=== PATIENT | female | born 1990 | race Hispanic/Latino ===

== ENCOUNTER 2020-11-10 23:50 | Emergency (ER) | payer SELFPAY ==
[2020-11-11 00:33] LABS: #Basophils 0.1 thou/uL (0.0-0.2); #Eosinphils 0.2 thou/uL (0.0-0.7); #Monocytes 0.6 thou/uL (0.11-0.59); #Neutrophils 6.8 thou/uL (1.40-6.50); %Basophils 1.2 % (0.0-1.0); %Eosinophils 1.9 % (0.0-10.0); %Lymphocytes 34.1 % (21.0-51.0); %Monocytes 5.4 % (0.0-10.0); %Neutrophils 57.4 % (42.0-75.0); Hemoglobin 14.5 g/dL (12.0-16.0); Mean Corpuscular HGB CONC 32.8 g/dL (32.0-36.0); Mean Corpuscular Hemoglobin 30.2 pg (27.0-31.0); Mean Corpuscular Volume 91.9 fL (78.0-98.0); Mean Platelet Volume 8.8 fL (7.4-10.4); Platelet Count 277 thou/uL (130-400); RBC Distribution Width 11.9 % (11.5-14.5); Red Blood Cell (RBC) Count 4.81 mill/uL (4.20-5.40); White Blood Cell (WBC) Count 11.8 thou/uL (4.8-10.8)
[2020-11-11 00:43] LABS: BHCG - Serum Negative (NEGATIVE); Pregs Control Background? CLEAR/WHITE (CLR/WHITE); Pregs Control Bar Appear? YES (CONTROL BAR)
[2020-11-11 00:46] LABS: ALT (SGPT) 17 U/L (8-55); AST (SGOT) 18 U/L (5-34); Albumin 4.1 g/dL (3.5-5.0); Alcohol Less than 10 mg/dL (Less than 10); Alkaline Phosphatase 89 U/L (40-110); Anion Gap 14 mmol/L (10-20); BUN (Urea Nitrogen) 8 mg/dL (7.0-18.7); Bilirubin, Total 0.4 mg/dL (0.2-1.2); CK (CPK) 82 U/L (29-168); Calc. Creatinine Clearance 0 mL/min (70-130); Calcium 9.4 mg/dL (7.8-10.44); Carbon Dioxide 25 mmol/L (22-29); Chloride 105 mmol/L (98-107); Globulin 3.5 g/dL (2.4-3.5); Glucose 104 mg/dL (70-105); Potassium 3.8 mmol/L (3.5-5.1); Protein, Total 7.6 g/dL (6.0-8.3); Sodium 140 mmol/L (136-145)
[2020-11-11] MEDS ORDERED: Ondansetron PF 4 MG/2 ML Vial ONE ×2 (00:54→00:55)
[2020-11-11] MEDS ORDERED: Sodium Chloride 0.9% 1,000 ML ONE (00:54)
[2020-11-11 01:16] LABS: Bilirubin Negative (Negative); Blood, Urine Negative (Negative); Clarity Clear (Clear); Glucose, Urine (Dipstick) Negative (Negative); Ketone, Urine Negative (Negative); Leukocyte Negative (Negative); Nitrite Negative (Negative); Protein, Urine (Dipstick) Negative (Neg-Trace); Urobilinogen 0.2 mg/dL (Less than 2)
[2020-11-11] MEDS ORDERED: cefTRIAXone\\ROCEPHIN 1 GM VIAL ONE (01:35)
[2020-11-11 01:38] LABS: Amphetamine Not Detected (NotDetected); Barbiturates Screen Not Detected (NotDetected); Benzodiazepine Screen Not Detected (NotDetected); Cocaine Metabolite Screen Not Detected (NotDetected); Medtox Control Line Valid? VALID (VALID); Methadone Not Detected (NotDetected); Methamphetamine Not Detected (NotDetected); Opiate Screen Not Detected (NotDetected); Oxycodone Screen Not Detected (NotDetected); Phencyclidine (PCP) Not Detected (NotDetected); THC/Cannabinoid Screen Not Detected (NotDetected); Tricyclic Screen Not Detected (NotDetected)
[2020-11-11] MEDS ORDERED: Ibuprofen 800 MG TAB ONE (02:02)
== END 2020-11-11 02:14 | disposition home or self-care (01) ==
LOC: MADERS 23:50
DX: J01.90 Acute sinusitis, unspecified (principal); R55 Syncope and collapse
CPT/HCPCS: 70450; 80053; 80306; 80307; 81003; 82550; 84703; 85025; 93005; 94760; 96374; 96375; J0696; J2405; J7050

== ENCOUNTER 2021-01-06 22:21 | Emergency (ER) | payer SELFPAY ==
[~2021-01-06 22:21] MED LIST: Iopamidol 370 76% 125 ML VIAL FS ONE; Sodium Chloride 0.9% 100 ML BAG ONE
[2021-01-06] MEDS ORDERED: Lidocaine 1% 20 ML MDV ONE (23:24)
[2021-01-06] MEDS ORDERED: Lidocaine 1% (PF) 30 ML VIAL ONE (23:27)
[2021-01-06 23:28] LABS: #Basophils 0.1 thou/uL (0.0-0.2); #Eosinphils 0.3 thou/uL (0.0-0.7); #Lymphocytes 3.1 thou/uL (1.20-3.40); #Monocytes 0.7 thou/uL (0.11-0.59); #Neutrophils 7.1 thou/uL (1.40-6.50); %Basophils 0.9 % (0.0-1.0); %Eosinophils 2.5 % (0.0-10.0); %Lymphocytes 27.6 % (21.0-51.0); %Monocytes 5.9 % (0.0-10.0); %Neutrophils 63.1 % (42.0-75.0); Hemoglobin 13.5 g/dL (12.0-16.0); Mean Corpuscular HGB CONC 33.5 g/dL (32.0-36.0); Mean Corpuscular Hemoglobin 30.8 pg (27.0-31.0); Mean Corpuscular Volume 91.9 fL (78.0-98.0); Mean Platelet Volume 8.4 fL (7.4-10.4); Platelet Count 258 thou/uL (130-400); RBC Distribution Width 11.5 % (11.5-14.5); Red Blood Cell (RBC) Count 4.38 mill/uL (4.20-5.40); White Blood Cell (WBC) Count 11.3 thou/uL (4.8-10.8)
[2021-01-06 23:48] LABS: ALT (SGPT) 15 U/L (8-55); AST (SGOT) 15 U/L (5-34); Albumin 4.2 g/dL (3.5-5.0); Alkaline Phosphatase 67 U/L (40-110); Anion Gap 14 mmol/L (10-20); BUN (Urea Nitrogen) 7 mg/dL (7.0-18.7); Bilirubin, Total 0.3 mg/dL (0.2-1.2); Calc. Creatinine Clearance 0 mL/min (70-130); Calcium 9.1 mg/dL (7.8-10.44); Carbon Dioxide 20 mmol/L (22-29); Chloride 108 mmol/L (98-107); Globulin 3.2 g/dL (2.4-3.5); Glucose 95 mg/dL (70-105); Magnesium 2.2 mg/dL (1.6-2.6); Potassium 3.7 mmol/L (3.5-5.1); Protein, Total 7.4 g/dL (6.0-8.3); Sodium 138 mmol/L (136-145)
[2021-01-07] MEDS ORDERED: Acetaminophen 500 MG TAB ONE (00:35)
[2021-01-07] MEDS ORDERED: diphenhydrAMINE 25 MG CAP ONE (00:35)
[2021-01-07 01:47] LABS: SARS-CoV-2 NAA Rapid Test Not Detected (NotDetected)
[2021-01-07 03:09] LABS: CSF, Glucose 57 mg/dl (40-70); CSF, Protein 20 mg/dL (15-40)
[2021-01-07 03:32] LABS: CSF Source CSF; Clarity Clear (Clear); Tube # 1; Tube # 4
[2021-01-07 03:36] LABS: Color Of CSF Supernatant COLORLESS (Colorless); Tube # 2; Unspun CSF Color COLORLESS (Colorless)
== END 2021-01-07 02:00 | disposition short-term general hospital (02) ==
LOC: MADERS 22:21
DX: O99.891 Other specified diseases and conditions complicating pregnancy (principal); H54.7 Unspecified visual loss; R07.81 Pleurodynia; R51.9 Headache, unspecified; R55 Syncope and collapse; Z3A.01 Less than 8 weeks gestation of pregnancy; Z20.822 Contact with and (suspected) exposure to COVID-19
CPT/HCPCS: 36416; 62270; 70450; 71275; 80053; 82945; 83605; 83735; 84157; 84484; 84702; 85025; 87040; 87070; 87205; 89051; 93005; J2001; J3490; Q0163; Q9967; U0002

== ENCOUNTER 2021-05-10 08:51 | Outpatient (CLI) | payer OTHER | END 2021-05-10 08:52 | disposition home or self-care (01) | LOC: MADLAB 08:51 | PROVIDERS: ATTEND Family Medicine | DX: O09.893 Supervision of other high risk pregnancies, third trimester (principal) | CPT/HCPCS: 36415; 82951; 82952 ==

== ENCOUNTER 2024-03-21 13:21 | Emergency (ER) | payer SELFPAY ==
[~2024-03-21 13:21] MED LIST changes: +Iopamidol 370 76% 100 ML VIAL ONE; -Iopamidol 370 76% 125 ML VIAL FS ONE; -Sodium Chloride 0.9% 100 ML BAG ONE
[2024-03-21 14:31] LABS: #Basophils 0.1 thou/uL (0.0-0.2); #Eosinophils 0.4 thou/uL (0.0-0.7); #Lymphocytes 2.6 thou/uL (1.20-3.40); #Monocytes 0.4 thou/uL (0.11-0.59); #Neutrophils 3.4 thou/uL (1.40-6.50); %Basophils 1.5 % (0.0-1.0); %Eosinophils 6.2 % (0.0-10.0); %Monocytes 5.2 % (0.0-10.0); %Neutrophils 49.1 % (42.0-75.0); Hematocrit 41.5 % (36.0-47.0); Hemoglobin 13.4 g/dL (12.0-16.0); Mean Corpuscular HGB CONC 32.1 g/dL (32.0-36.0); Mean Corpuscular Hemoglobin 28.8 pg (27.0-31.0); Mean Corpuscular Volume 89.6 fl (78.0-98.0); Mean Platelet Volume 8.3 fL (7.4-10.4); Platelet Count 359 10x3/uL (130-400); RBC Distribution Width 11.7 % (11.5-14.5); Red Blood Cell (RBC) Count 4.63 mill/uL (4.20-5.40); White Blood Cell (WBC) Count 6.8 10x3/uL (4.8-10.8)
[2024-03-21 14:35] LABS: Bilirubin Negative (Negative); Blood, Urine Trace (Negative); Glucose, Urine (Dipstick) Negative (Negative); Ketone, Urine Negative (Negative); Leukocyte Trace (Negative); Nitrite Positive (Negative); Protein, Urine (Dipstick) Negative (Neg-Trace); Urobilinogen 0.2 mg/dL (Less than 2)
[2024-03-21 14:36] LABS: Clarity Hazy (Clear)
[2024-03-21 14:39] LABS: Bacteria/HPF 2+ HPF (None Seen); CAUTI Indications for Culture Dysuria,urgency,freq; RBC/HPF 0-3 HPF (0-3); Urine Culture Reflex No No
[2024-03-21 14:39] LABS: Prothrombin Time 13.4 sec (12.0-14.7)
[2024-03-21 14:40] LABS: BHCG - Serum Negative (NEGATIVE); PTT 31.8 sec (22.9-36.1); Pregs Control Background? CLEAR/WHITE (CLR/WHITE); Pregs Control Bar Appear? YES (CONTROL BAR)
[2024-03-21 14:50] LABS: ALT (SGPT) 23 U/L (8-55); AST (SGOT) 20 U/L (5-34); Albumin 4.2 g/dL (3.5-5.0); Alkaline Phosphatase 113 U/L (40-110); Anion Gap 13 mmol/L (10-20); BUN (Urea Nitrogen) 5 mg/dL (7.0-18.7); Bilirubin, Total 0.4 mg/dL (0.2-1.2); Calc. Creatinine Clearance 0 mL/min (70-130); Calcium 9.2 mg/dL (7.8-10.44); Carbon Dioxide 22 mmol/L (22-29); Chloride 109 mmol/L (98-107); Estimated GFR 111; Glucose 96 mg/dL (70-105); Potassium 3.4 mmol/L (3.5-5.1); Protein, Total 8.2 g/dL (6.0-8.3); Sodium 141 mmol/L (136-145)
[2024-03-21 14:51] LABS: Troponin I Less than 0.010 ng/mL (< 0.028)
== END 2024-03-21 16:24 | disposition home or self-care (01) ==
LOC: MADERS 13:21
DX: N39.0 Urinary tract infection, site not specified (principal); J18.9 Pneumonia, unspecified organism; J32.9 Chronic sinusitis, unspecified; R29.703 NIHSS score 3; Z55.6 Problems related to health literacy; Z75.8 Other problems related to medical facilities and other health care
CPT/HCPCS: 70450; 70496; 70498; 71045; 80053; 81001; 84484; 84703; 85025; 85610; 85730; 87077; 87086; 93005; Q9967